=== PATIENT | female | born 1970 | race Caucasian/White ===

== ENCOUNTER 2023-03-30 08:59 | Emergency (ER) | payer OTHER ==
[2023-03-30 10:55] LABS: SARS-CoV-2 NAA Rapid Test Not Detected (NotDetected)
== END 2023-03-30 09:57 | disposition home or self-care (01) ==
LOC: CSHERS 08:59
DX: J06.9 Acute upper respiratory infection, unspecified (principal); Z20.822 Contact with and (suspected) exposure to COVID-19
CPT/HCPCS: 99283

== ENCOUNTER 2023-04-01 13:31 | Emergency (ER) | payer OTHER ==
[2023-04-01] MEDS ORDERED: Dexamethasone 4 mg/ml Vial ONE (15:39)
== END 2023-04-01 16:50 | disposition home or self-care (01) ==
LOC: CSHERS 13:31
DX: J20.9 Acute bronchitis, unspecified (principal)
CPT/HCPCS: 96372; 99283; J1100

== ENCOUNTER 2023-06-02 17:34 | Emergency (ER) | payer OTHER ==
[2023-06-02] MEDS ORDERED: Ibuprofen 800 MG TAB ONE (18:38)
[2023-06-02] MEDS ORDERED: Boostrix 0.5 ML (Tdap) VIAL (>/=7 yrs of age) ONE (19:12)
== END 2023-06-02 19:45 | disposition home or self-care (01) ==
LOC: CSHERS 17:34
DX: S61.431A Puncture wound without foreign body of right hand, initial encounter (principal); W55.01XA Bitten by cat, initial encounter
CPT/HCPCS: 90471; 90715

== ENCOUNTER 2023-10-29 12:26 | Emergency (ER) | payer OTHER ==
[2023-10-29] MEDS ORDERED: Orphenadrine Citrate 60 MG/2 ML VIAL ONE (15:39)
[2023-10-29] MEDS ORDERED: Ketorolac Tromethamine 30 MG (1 mL) VIAL ONE (15:39)
[2023-10-29] MEDS ORDERED: HYDROcodone/Acetaminophen 7.5/325 mg Tablet PO SCH (16:00)
[2023-10-29 16:05] LABS: Bilirubin Neg (Negative); Blood, Urine 10 (Negative); Glucose, Urine (Dipstick) Normal (Negative); Ketone, Urine Negative (Negative); Leukocyte 25 (Negative); Nitrite Positive (Negative); Protein, Urine (Dipstick) 15 mg/dl (Neg-Trace); Specific Gravity, Urine 1.025 (1.005-1.030); Urobilinogen Normal mg/dL (Less than 2)
[2023-10-29 16:06] LABS: Clarity Hazy (Clear)
[2023-10-29 16:38] LABS: CAUTI Indications for Culture Dysuria,urgency,freq; RBC/HPF 0-3 HPF (0-3)
[2023-10-29 16:39] LABS: Bacteria/HPF 3+ HPF (None Seen); Calcium Oxalate Crystals 3+ HPF (None Seen)
[2023-10-29 16:43] LABS: Urine Culture Reflex Yes Yes
[2023-10-29] MEDS ORDERED: Ondansetron PF 4 MG/2 ML Vial ONE (16:52)
[2023-10-29] MEDS ORDERED: cefTRIAXone (ROCEPHIN) 1 GM VIAL ONE (18:17)
== END 2023-10-29 18:35 | disposition home or self-care (01) ==
LOC: CSHERS 12:26
DX: N39.0 Urinary tract infection, site not specified (principal)
CPT/HCPCS: 72148; 81001; 87077; 87086; 87186; 96372; 96374; 96375; J0696; J1885; J2360; J2405

== ENCOUNTER 2023-11-22 18:40 | Emergency (ER) | payer OTHER ==
[2023-11-22] MEDS ORDERED: Lidocaine 2% Viscous 10 mL, Alum & Magn 30 mL SSW SCH (19:45)
[2023-11-22 20:10] LABS: #Basophils 0.06 10x3/uL (0.0-0.2); #Eosinphils 0.44 10x3/uL (0.0-0.5); #Monocytes 0.82 10x3/uL (0.0-1.1); #Neutrophils 3.95 10x3/uL (1.5-8.4); %Basophils 0.7 % (0.0-2.0); %Eosinophils 5.4 % (0.0-6.0); %Lymphocytes 34.7 % (18.0-47.0); %Monocytes 10.1 % (0.0-10.0); %Neutrophils 48.7 % (40.0-75.0); Hematocrit 41.1 % (34.9-44.5); Hemoglobin 13.5 g/dL (12.0-15.5); Mean Corpuscular HGB CONC 32.8 g/dL (32.0-36.0); Mean Corpuscular Volume 91.3 fL (81.6-98.3); Mean Platelet Volume 10.9 fL (7.4-10.4); Platelet Count 308 10x3/uL (150-450); RBC Distribution Width 13.4 % (11.5-14.5); White Blood Cell (WBC) Count 8.1 10x3/uL (3.5-10.5)
[2023-11-22 20:20] LABS: ALT (SGPT) 11 U/L (8-55); AST (SGOT) 17 U/L (5-34); Albumin 3.5 g/dL (3.5-5.0); Alkaline Phosphatase 87 U/L (40-110); Anion Gap 12 mmol/L (10-20); BUN (Urea Nitrogen) 20 mg/dL (9.8-20.1); Bilirubin, Total 0.2 mg/dL (0.2-1.2); Calc. Creatinine Clearance 0 mL/min (70-130); Calcium 9.2 mg/dL (7.8-10.44); Carbon Dioxide 22 mmol/L (22-29); Chloride 113 mmol/L (98-107); Estimated GFR 62; Globulin 3.1 g/dL (2.4-3.5); Glucose 95 mg/dL (70-105); Potassium 4.2 mmol/L (3.5-5.1); Protein, Total 6.6 g/dL (6.0-8.3); Sodium 143 mmol/L (136-145)
== END 2023-11-22 21:10 | disposition home or self-care (01) ==
LOC: CSHERS 18:40
DX: K31.84 Gastroparesis (principal)
CPT/HCPCS: 80053; 85025; 96360

== ENCOUNTER 2024-04-22 12:03 | Emergency (ER) | payer OTHER ==
[2024-04-22] MEDS ORDERED: Ketorolac Tromethamine 30 MG (1 mL) VIAL ONE (12:43)
[2024-04-22] MEDS ORDERED: Dexamethasone 10 MG/ML VIAL ONE (12:43)
[2024-04-22] MEDS ORDERED: Metoclopramide HCl 10 MG (2 mL) VIAL ONE (12:43)
[2024-04-22] MEDS ORDERED: Erythromycin 500 MG in Sodium Chloride 0.9% 250 ML 250 ML IVPB SCH (13:00)
[2024-04-22 13:09] LABS: #Basophils 0.01 10x3/uL (0.0-0.2); #Eosinophils 0.06 10x3/uL (0.0-0.5); #Monocytes 0.47 10x3/uL (0.0-1.1); #Neutrophils 1.98 10x3/uL (1.5-8.4); %Basophils 0.3 % (0.0-2.0); %Eosinophils 1.6 % (0.0-6.0); %Lymphocytes 33.4 % (18.0-47.0); %Monocytes 12.4 % (0.0-10.0); Hematocrit 43.9 % (34.9-44.5); Hemoglobin 14.2 g/dL (12.0-15.5); Mean Corpuscular HGB CONC 32.3 g/dL (32.0-36.0); Mean Corpuscular Hemoglobin 29.1 pg (27.0-33.0); Mean Platelet Volume 9.9 fL (7.4-10.4); Platelet Count 249 10x3/uL (150-450); RBC Distribution Width 13.4 % (11.5-14.5); Red Blood Cell (RBC) Count 4.88 10x6/uL (3.90-5.03); White Blood Cell (WBC) Count 3.8 10x3/uL (3.5-10.5)
[2024-04-22 13:27] LABS: ALT (SGPT) 19 U/L (8-55); AST (SGOT) 28 U/L (5-34); Albumin 3.8 g/dL (3.5-5.0); Alkaline Phosphatase 88 U/L (40-110); Anion Gap 15 mmol/L (10-20); BUN (Urea Nitrogen) 20 mg/dL (9.8-20.1); Bilirubin, Total 0.3 mg/dL (0.2-1.2); Calc. Creatinine Clearance 0 mL/min (70-130); Calcium 9.1 mg/dL (7.8-10.44); Carbon Dioxide 19 mmol/L (22-29); Chloride 111 mmol/L (98-107); Estimated GFR 57; Globulin 3.4 g/dL (2.4-3.5); Glucose 101 mg/dL (70-105); Lipase 16 U/L (8-78); Magnesium 1.8 mg/dL (1.6-2.6); Potassium 3.9 mmol/L (3.5-5.1); Protein, Total 7.2 g/dL (6.0-8.3); Sodium 141 mmol/L (136-145)
== END 2024-04-22 14:57 | disposition home or self-care (01) ==
LOC: CSHERS 12:03
DX: G43.909 Migraine, unspecified, not intractable, without status migrainosus (principal); E86.0 Dehydration; J11.1 Influenza due to unidentified influenza virus with other respiratory manifestations
CPT/HCPCS: 71045; 80053; 83690; 83735; 85025; 87428; 93005; 96361; 96365; 96375; J1100; J1364; J1885; J2765; J7050

== ENCOUNTER 2025-01-23 18:41 | Emergency (ER) | payer MEDICAID ==
[2025-01-23] MEDS ORDERED: Metoclopramide HCl 10 MG (2 mL) VIAL ONE (20:16)
[2025-01-23] MEDS ORDERED: Dexamethasone 10 MG/ML VIAL ONE (20:16)
[2025-01-23] MEDS ORDERED: Ketorolac Tromethamine 30 MG (1 mL) VIAL ONE (20:16)
[2025-01-23] MEDS ORDERED: Magnesium 2 GM/50 ML BAG (IN WATER) ONE (20:16)
[2025-01-23 21:00] LABS: #Basophils 0.04 10x3/uL (0.0-0.2); #Eosinophils 0.26 10x3/uL (0.0-0.5); #Monocytes 0.89 10x3/uL (0.0-1.1); #Neutrophils 4.10 10x3/uL (1.5-8.4); %Basophils 0.4 % (0.0-2.0); %Eosinophils 2.9 % (0.0-6.0); %Lymphocytes 41.0 % (18.0-47.0); %Monocytes 9.9 % (0.0-10.0); %Neutrophils 45.5 % (40.0-75.0); Hematocrit 39.6 % (34.9-44.5); Hemoglobin 12.9 g/dL (12.0-15.5); Mean Corpuscular Hemoglobin 29.3 pg (27.0-33.0); Mean Corpuscular Volume 90.0 fL (81.6-98.3); Platelet Count 348 10x3/uL (150-450); Red Blood Cell (RBC) Count 4.40 10x6/uL (3.90-5.03); White Blood Cell (WBC) Count 9.01 10x3/uL (3.5-10.5)
[2025-01-23 21:14] LABS: ALT (SGPT) 9 U/L (Less than 34); AST (SGOT) 19 U/L (11-34); Albumin 3.9 g/dL (3.1-4.5); Alkaline Phosphatase 83 U/L (40-110); Anion Gap 13 mmol/L (10-20); BUN (Urea Nitrogen) 24 mg/dL (9.8-20.1); Bilirubin, Total 0.1 mg/dL (0.3-1.2); Calc. Creatinine Clearance 0 mL/min (70-130); Calcium 8.9 mg/dL (7.8-10.44); Carbon Dioxide 23 mmol/L (22-29); Chloride 111 mmol/L (98-107); Globulin 3.0 g/dL (2.4-3.5); Glucose 87 mg/dL (70-105); Potassium 3.6 mmol/L (3.5-5.1); Sodium 143 mmol/L (136-145)
== END 2025-01-23 21:22 | disposition home or self-care (01) ==
LOC: CSHERS 18:41
DX: G43.909 Migraine, unspecified, not intractable, without status migrainosus (principal)
CPT/HCPCS: 70450; 80053; 85025; 96365; 96375; J1100; J1885; J2765; J3475